=== PATIENT | male | born 1995 | race Caucasian/White ===

== ENCOUNTER 2017-01-19 05:16 | Emergency (ER) | payer BC, OTHER ==
[2017-01-19 05:34] VITALS: BP 146/85; PULSE 96; RESP 16; TEMP 98.6; O2SAT 98
--- NOTE | 2017-01-19 05:38 | PD ---
HPI Chief Complaint: Alcohol/Drug Intoxication Time Seen by Provider: 05:30 Travel History International Travel<30 days: No Contact w/Intl Traveler<30days: No Traveled to known affect area: No History of Present Illness HPI 21-year-old male presents to the emergency department under [facility] act. Patient was in his apartment sleeping on the balcony and his friend was locked out. His friend found police to help him in. The patient was noted to be intoxicated , slurring of speech, not easily arousable. They brought him here under [facility] act. Patient here is awake and alert. He states he has been drinking alcoholic all evening with his friend. Denies suicidal homicidal ideations. He has no other symptoms to report. [facility] Past Medical History Medical History: Denies Significant Hx Immunizations Current: Yes Past Surgical History Surgical History: No Previous Surgery Social History Alcohol Use: Yes Tobacco Use: No Substance Use: No Allergies-Medications (Allergen,Severity, Reaction): Coded Allergies: No Known Allergies (Unverified , 01/19/17) Reported Meds & Prescriptions Reported Meds & Active Scripts Active No Active Prescriptions or Reported Medications Review of Systems Except as stated in HPI: all other systems reviewed are Neg Physical Exam Narrative GENERAL: Well-nourished male patient, in no acute distress. SKIN: Focused skin assessment warm/dry. HEAD: Atraumatic. Normocephalic. EYES: Pupils equal and round. No scleral icterus. No injection or drainage. ENT: No nasal bleeding or discharge. Mucous membranes pink and moist. NECK: Trachea midline. No JVD. CARDIOVASCULAR: Regular rate and rhythm. No murmur appreciated. RESPIRATORY: No accessory muscle use. Clear to auscultation. Breath sounds equal bilaterally. GASTROINTESTINAL: Abdomen soft, non-tender, nondistended. Hepatic and splenic margins not palpable. MUSCULOSKELETAL: No obvious deformities. No clubbing. No cyanosis. No edema. NEUROLOGICAL: Awake and alert. No obvious cranial nerve deficits. Motor grossly within normal limits. Normal speech. Data Data Last Documented VS Vital Signs Date Time Temp Pulse Resp B/P (MAP) Pulse Ox O2 Delivery O2 Flow Rate FiO2 01/19/17 05:34 98.6 96 16 146/85 (105) 98 MDM Medical Decision Making Medical Screen Exam Complete: Yes Emergency Medical Condition: Yes Medical Record Reviewed: Yes Differential Diagnosis Intoxication versus adjustment reaction disorder versus polysubstance abuse versus Mood disorder versus personality disorder Narrative Course 21-year-old male presents to the emergency department under my her side. Patient admits to consuming large amount of alcohol this evening. He is ambulatory without difficulty. He has clear speech. Once the patient has a safe ride home, he will be discharged. Diagnosis Primary Impression: Alcohol intoxication Qualified Codes: F10.920 - Alcohol use, unspecified with intoxication, uncomplicated Referrals: [facility] (Out patient) Patient Instructions: Abuse of Alcohol (ED), General Instructions Additional Instructions: Consume alcohol in moderation Follow-up the primary care provider Return immediately with any acute worsening symptoms. Med/Other Pt SpecificInfo: No Change to Meds Scripts No Active Prescriptions or Reported Meds Disposition: 01 DISCHARGE HOME Condition: Stable Argelia Orellana Jan 19, 2017 05:38
== END 2017-01-19 06:25 | disposition home or self-care (01) ==
LOC: NEPD 05:16
DX: F10.920 Alcohol use, unspecified with intoxication, uncomplicated (principal)
CPT/HCPCS: 99281